=== PATIENT | female | born 1940 | race Caucasian/White ===

== ENCOUNTER 2020-05-09 08:55 | Emergency (ER) | payer OTHER ==
[~2020-05-09 08:55] MED LIST: DIAMOX 250 MG250 MG PO; IPRAT-ALBUT 0.5-3 ML INH; LOVASTATIN10 MG PO; NORVASC 5 MG TAB5 MG PO; PREDFORTE OP SUS5 ML OS; PREDNISONE10 MG PO; ROPINIROLE HCL2 MG PO; THEO-DUR 300 M300 MG PO; TRELEGY ELLIPT1 EACH INH; XANAX0.5 MG PO; [UNRECOGNIZED DRUG - OTHER] OP
[2020-05-09 11:43] LABS: BUN/CREATININE RATIO 25 (0-10)
[2020-05-09 12:26] LABS: RED BLOOD COUNT 3.82 M/UL (4.00-5.10); WHITE BLOOD COUNT 11.6 K/UL (4.5-11.0)
[2020-05-09] MEDS ORDERED: MEDROL DOSEPAK 24 MG PO (12:37)
[2020-05-09] MEDS ORDERED: TESSALON PERLE100 MG PO (12:37)
== END 2020-05-09 12:57 | disposition home or self-care (01) ==
LOC: ER1 08:55
PROVIDERS: Physician Assistant
DX: J44.1 Chronic obstructive pulmonary disease with (acute) exacerbation (principal); I10 Essential (primary) hypertension; E78.5 Hyperlipidemia, unspecified; Z20.822 Contact with and (suspected) exposure to COVID-19; Z87.891 Personal history of nicotine dependence
CPT/HCPCS: 0240U; 71045; 80053; 82550; 82553; 83874; 83880; 84484; 85025; 93005; 94664; 96374; 99285; J2930

== ENCOUNTER 2021-03-17 11:51 | Emergency (ER) | payer OTHER ==
[~2021-03-17 11:51] MED LIST changes: +MEDROL DOSEPAK 24 MG PO; +TESSALON PERLE100 MG PO
[2021-03-17 12:47] LABS: HEMOGLOBIN 11.2 gm/dl (12.3-15.3); RED BLOOD COUNT 3.94 M/UL (4.00-5.10); WHITE BLOOD COUNT 7.6 K/UL (4.5-11.0)
[2021-03-17 13:10] LABS: BUN/CREATININE RATIO 25 (0-10)
[2021-03-17] MEDS ORDERED: PREDNISONE20 MG PO (14:04)
[2021-03-17] MEDS ORDERED: DOXYCYCLINE HY100 MG PO (14:04)
== END 2021-03-17 14:10 | disposition home or self-care (01) ==
LOC: ER1 11:51
PROVIDERS: Nurse Practitioner
DX: U07.1 COVID-19 (principal); J44.0 Chronic obstructive pulmonary disease with (acute) lower respiratory infection; J12.82 Pneumonia due to coronavirus disease 2019; J44.1 Chronic obstructive pulmonary disease with (acute) exacerbation; Z79.52 Long term (current) use of systemic steroids; Z99.81 Dependence on supplemental oxygen; Z87.891 Personal history of nicotine dependence
CPT/HCPCS: 36600; 71045; 80048; 82550; 82553; 82803; 83605; 83874; 84484; 85025; 85652; 86140; 87040; 93005; 99285